=== PATIENT | male | born 1990 | race Asian ===

== ENCOUNTER 2016-12-04 15:05 | Emergency (ER) | payer MEDICAID ==
[2016-12-04 15:12] VITALS: O2SAT 98
--- NOTE | 2016-12-04 15:14 | EDPHY ---
H & P Stated Complaint: 1 week RLQ/ RFlank pain Time Seen by Provider: 12/04/16 15:14 - Personal History Current Tetanus/Diphtheria Vaccine: Yes - Medical/Surgical History Hx Asthma: No Hx Chronic Respiratory Disease: No Hx Diabetes: No Hx Cardiac Disease: No Hx Renal Disease: No Hx Cirrhosis: No Hx Alcoholism: No Hx HIV/AIDS: No Hx Splenectomy or Spleen Trauma: No Other PMH: denies - Social History Smoking Status: Current every day smoker Constitutional: Initial Vital Signs Temperature (C) 37 C 12/04/16 15:09 Heart Rate 86 12/04/16 15:09 Respiratory Rate 20 12/04/16 15:09 Blood Pressure 120/78 12/04/16 15:09 O2 Sat (%) 98 12/04/16 15:09 O2 Delivery Mode Room Air Allergies/Adverse Reactions: No Known Allergies Allergy (Unverified 12/04/16 15:08) Home Medications: Medication Instructions Recorded Cephalexin [Keflex (RX)] 500 mg PO TID #30 cap 12/04/16 Hydrocodone/APAP 5/325 [[place] 1 - 2 each PO Q4-6PRN PRN #20 tab 12/04/16 5/325] Medical Decision Making - Diagnostics Imaging Results: Imaging Impressions Abdomen/Pelvis CT 12/04/16 15:51 Impression: 3 mm calculus in the distal right ureter with no significant hydronephrosis. Results called and discussed with Sergio Norwood M.D. on December 04, 2016 at 1648 hours. Attention: This CT examination is specifically designed to evaluate patients who are clinically suspected of having acute obstructive uropathy. This examination does not use radiographic contrast, and as such, provides only a limited evaluation of the abdomen, pelvis and retroperitoneum. If there is further clinical suspicion for pathological conditions other than obstructive uropathy, a complete CT evaluation of the abdomen and pelvis utilizing intravenous, oral, and rectal contrast should be considered. Imaging: Discussed imaging studies w/ call center analyst Radiologist ED Course/Re-evaluation: CHIEF COMPLAINT: RLQ Pain HISTORY OF PRESENT ILLNESS: This patient is a 26 year old male complaining of intermittent right-sided abdominal pain onset one week ago. He describes the pain as dull and localized to his right lower quadrant, and states that the discomfort has begun radiating to his back and towards his groin. He denies nausea, vomiting, or testicular pain. He denies recent trauma or history of hernia or other abdominal surgeries. REVIEW OF SYSTEMS: A 10 point review of systems was performed and is negative with the exception of the elements mentioned in the history of present illness. PHYSICAL EXAM: HR, BP, O2 Sat, RR. Temp noted General Appearance: Alert, well hydrated, appropriate, and non-toxic appearing. Head: Atraumatic without scalp tenderness or obvious injury Eyes: Pupils equal, round, reactive to light and accommodation, EOMI, no trauma , no injection. Throat: There is no erythema or exudates, no lesions, normal tonsils, mucus membranes moist. Neck: Supple, nontender, no lymphadenopathy. Respiratory: No retractions, no distress, no wheezes, and no accessory muscle use. Lungs are clear to auscultation bilaterally. Cardiovascular: Regular rate and rhythm, no murmurs, rubs, or gallops. Good capillary refill all extremities. Gastrointestinal: Abdomen is soft, nontender, non-distended, no masses, no rebound, no guarding, no peritoneal signs. Musculoskeletal: Normal active ROM of all extremities, atraumatic. Neurological: Alert, appropriate, and interactive. Nonfocal neuro exam. Skin: No rashes, good turgor, no nodules on palpation. Past medical history: Denies Past surgical history: Denies Family history: Noncontributory Social history: Significant other at bedside. DIFFERENTIAL DIAGNOSIS: The differential diagnosis for the patient's abdominal pain included but was not limited to appendicitis, cholecystitis, kidney stone, hernias, testicular torsion, gastritis, and urinary tract infection. MEDICAL DECISION MAKING: This patient is a 26 year old male presenting with 1 week history of right- sided lower abdominal pain. On exam, his pain is non-reproducible, abdomen and flank are not tender on palpation. Plan for labs including I-stat and UA. IV established. Plan to administer 1L IV NS. WBC elevated, UA reveals presence of blood. Plan for CT abdomen to further evaluate. Plan to administer 500mg PO Keflex. 16:[address] Simons, radiologist. CT abdomen reveals 3mm distal kidney stone. 16:53 Reassessed patient. Plan to discharge home in good condition with referral to urology, Vicodin for pain control, Keflex to address elevated white blood cell count. The patient is comfortable with this plan. - Data Points Laboratory Results: 12/04/16 12/04/16 15:23 15:20 POC Hgb 18.0 gm/dL H gm/dL (13.7-17.5) POC Hct 53 % H % (40-51) POC Sodium 143 mEq/L mEq/L (134-144) POC Potassium 3.7 mEq/L mEq/L (3.3-5.0) POC Chloride 100 mEq/L mEq/L (97-110) POC BUN 10 mg/dL mg/dL (7-23) POC Creatinine 1.2 mg/dL mg/dL (0.7-1.3) POC Glucose 95 mg/dL mg/dL (70-100) Urine Color YELLOW Urine Appearance HAZY Urine pH 5.0 (5.0-7.5) Ur Specific [place] 1.024 (1.002-1.030) Urine Protein 1+ H (NEGATIVE) Urine Ketones NEGATIVE (NEGATIVE) Urine Blood NEGATIVE (NEGATIVE) Urine Nitrate NEGATIVE (NEGATIVE) Urine Bilirubin NEGATIVE (NEGATIVE) Urine Urobilinogen NEGATIVE EU EU (0.2-1.0) Ur Leukocyte Esterase NEGATIVE (NEGATIVE) Urine RBC 25-50 /hpf H /hpf (0-3) Urine WBC 5-10 /hpf H /hpf (0-3) Ur Epithelial Cells TRACE /lpf /lpf (NONE-1+) Urine Mucus 2+ /lpf H /lpf (NONE-1+) Urine Glucose NEGATIVE (NEGATIVE) Medications Given: Discontinued Medications Sodium Chloride (Ns) 1,000 mls @ 0 mls/hr IV ONCE ONE; Wide Open PRN Reason: Protocol Stop: 12/04/16 15:21 Last Admin: 12/04/16 15:20 Dose: 1,000 mls Point of Care Test Results: 12/04/16 15:23 POC Sodium 143 POC Potassium 3.7 POC Chloride 100 POC BUN 10 POC Creatinine 1.2 POC Glucose 95 Departure - Departure Disposition: Home, Routine, Self-Care Clinical Impression: Kidney stone on right side Condition: Good Instructions: Kidney Stones (ED) Additional Instructions: 1. Take your Keflex as prescribed. It is important to finish your entire course of antibiotics. 2. Take Vicodin as prescribed as needed for pain. You may also take ibuprofen as directed on the packaging. 3. Follow up with urology on Tuesday for continued management of your kidney stone. We have referred you to our urologist education and training coordinator. 4. Return to the Emergency Department for worsening or uncontrollable pain, fever, chills, nausea, vomiting, blood in your urine, or other worsening of condition. Referrals: NONE *PRIMARY CARE P,. [Primary Care Provider] - As per Instructions Leonardo Garcia MD [Medical Doctor] - As per Instructions Prescriptions: Cephalexin [Keflex (RX)] 500 mg PO TID #30 cap Hydrocodone/APAP 5/325 [[place] 5/325] 1 - 2 each PO Q4-6PRN PRN #20 tab PRN Reason: Pain, Moderate Report Scribed for: Sergio Norwood Report Scribed by: Clarissa Hernandez Date of Report: 12/04/16 Time of Report: 16:55
[2016-12-04] MEDS ORDERED: NS 1,000 ML IV ONE (15:20)
[2016-12-04 15:35] LABS: COLOR YELLOW; LEUKOCYTE ESTERASE,URINE NEGATIVE (NEGATIVE); NITRITE,URINE NEGATIVE (NEGATIVE)
[2016-12-04 15:41] LABS: MUCUS 2+ /lpf (NONE-1+); RBC,URINE 25-50 /hpf (0-3)
[2016-12-04] MEDS ORDERED: CEPHALEXIN 500 MG CAP PO ONE (16:47)
[2016-12-04 17:11] VITALS: BP 113/76; PULSE 80; RESP 16; TEMP 98.4
== END 2016-12-04 17:17 | disposition home or self-care (01) ==
DX: N20.0 Calculus of kidney (principal); F17.200 Nicotine dependence, unspecified, uncomplicated; E86.9 Volume depletion, unspecified
CPT/HCPCS: 82947-QW

== ENCOUNTER 2017-01-15 17:33 | Emergency (ER) | payer MEDICAID ==
[2017-01-15 17:44] VITALS: RESP 16
[2017-01-15] MEDS ORDERED: KETOROLAC 15 MG/1 ML SDV IVP ONE (18:47)
[2017-01-15] MEDS ORDERED: DEXAMETHASONE 4 MG/ML VIAL IVP ONE (18:47)
--- NOTE | 2017-01-15 19:02 | EDPHY ---
H & P Smoking Status: Current every day smoker Time Seen by Provider: 01/15/17 18:56 HPI/ROS: HPI: Mr. Ashby is a 26 yrs, male who presents with Chief Complaint: Sore throat Location: Throat Quality: Pain Duration: 1 day Signs and Symptoms: Positive low-grade fever, no chills, positive fatigue, positive swollen glands, positive pain with swallowing, no rash, no neck stiffness Timing: Sudden and constant Severity: Moderate Context: Patient today presents with sudden onset of sore throat accompanied with swollen glands on both sides and fatigue. Modifying Factors: Has tried no eett-vuy-cwwrene medications Comment: ROS: Eyes: No blurred vision Respiratory: No shortness of breath, no cough Cardiovascular: No chest pain Gastrointestinal: No nausea, no vomiting no diarrhea Genitourinary: No dysuria Extremities: No myalgias Neurologic: No weakness, no numbness Skin: No rashes Hematologic: No bruising, no bleeding MEDICAL/SURGICAL HISTORY: Kidney stone. Denies any surgeries. (Mandy Dang) Social History: Student. Has a girlfriend. (Mandy Dang) Physical Exam: CONSTITUTIONAL: Young adult male, no difficulty with talking, awake and alert, no obvious distress HEENT: Atraumatic and normocephalic, PERRL, EOMI. Tympanic membranes clear. Oropharynx clear, tonsils 1+ bright red, no exudate, uvula midline and moist pink mucosa. Airway patent. Mild anterior cervical spotting lymphadenopathy. No meningismus. Cardiovascular: Normal S1/S2, tachycardia, regular rhythm, without murmur rub or gallop. PULMONARY/CHEST: Symmetrical and nontender. Clear to auscultation bilaterally Good air movement. No accessory muscle usage. ABDOMEN: Soft, nondistended, nontender, no rebound, no guarding, no peritoneal signs, no masses or organomegaly. No CVAT. EXTREMITIES: 2/2 pulses, no deformities, no clubbing, no cyanosis or edema. NEUROLOGICAL: no focal neuro deficits. GCS 15. Speech clear SKIN: Warm and dry, no erythema. no rash. Good capillary refill. (Mandy Dang) Constitutional: Initial Vital Signs Temperature (C) 37.2 C 01/15/17 17:41 Heart Rate 99 01/15/17 17:41 Respiratory Rate 16 01/15/17 17:41 O2 Sat (%) 97 08/19/17 17:41 O2 Delivery Mode Room Air Allergies/Adverse Reactions: No Known Allergies Allergy (Unverified 12/04/16 15:08) Home Medications: Medication Instructions Recorded Cephalexin [Keflex (RX)] 500 mg PO TID #30 cap 12/04/16 Hydrocodone/APAP 5/325 [[place] 1 - 2 each PO Q4-6PRN PRN #20 tab 12/04/16 5/325] Medical Decision Making ED Course/Re-evaluation: strep, mono, medications No signs of sepsis, tonsillar abscess, airway compromise, dehydration Strep positive, mono negative Patient adamantly declined taking 10 days of antibiotics requested "the shot" IM Bicillin given (Mandy Dang) I did not see this patient while he was in the emergency department. However his care was discussed with the PA while the patient was in the department. I agree with treatment plan and management (Humberto Chapman) Differential Diagnosis: Differential diagnosis includes but is not limited to viral syndrome, viral pharyngitis, strep pharyngitis, mono, retropharyngeal abscess, tonsillar abscess. (Mandy Dang) - Data Points Medications Given: Discontinued Medications Dexamethasone (Decadron Injection) 8 mg IVP EDNOW ONE Stop: 01/15/17 18:48 Last Admin: 01/15/17 19:14 Dose: 8 mg Sodium Chloride (Ns) 1,000 mls @ 0 mls/hr IV ONCE ONE; Wide Open PRN Reason: Protocol Stop: 01/15/17 19:15 Last Admin: 01/15/17 19:17 Dose: 1,000 mls Ketorolac Tromethamine (Toradol) 15 mg IVP EDNOW ONE Stop: 01/15/17 18:48 Last Admin: 01/15/17 19:14 Dose: 15 mg Penicillin G Procaine/Benzathine (Bicillin C-R 1.2mm Units Syr) 1,200,000 unit IM ONCE ONE PRN Reason: Protocol Stop: 01/15/17 19:31 Last Admin: 01/15/17 20:09 Dose: 1,200,000 unit Departure - Departure Disposition: Home, Routine, Self-Care Clinical Impression: Streptococcal pharyngitis Condition: Good Instructions: Strep Throat (ED) Additional Instructions: Take ibuprofen 600-800 mg every 6-8 hours with food for pain or fever. Referrals: [facility],. [Clinic] - 3-4 days, if not improved
[2017-01-15] MEDS ORDERED: NS 1,000 ML IV ONE (19:14)
[2017-01-15] MEDS ORDERED: BICILLIN C-R 1200000 UNIT/2 ML SYRINGE IM ONE (19:30)
[2017-01-15 20:22] VITALS: BP 137/87; PULSE 96; TEMP 98.6; O2SAT 96
== END 2017-01-15 20:22 | disposition home or self-care (01) ==
DX: J02.0 Streptococcal pharyngitis (principal); F17.200 Nicotine dependence, unspecified, uncomplicated; E86.9 Volume depletion, unspecified
CPT/HCPCS: 96374; J1100; J1885

== ENCOUNTER 2017-07-04 15:25 | Emergency (ER) | payer MEDICAID ==
[2017-07-04 15:33] VITALS: TEMP 98.1
--- NOTE | 2017-07-04 16:18 | CPEKG ---
Heart Rate: 95 RR Interval: 632 P-R Interval: 160 QRSD Interval: 102 QT Interval: 364 QTC Interval: 458 P [place]: 81 QRS [place]: 92 T Wave [place]: 49 EKG Severity - BORDERLINE ECG - EKG Impression: SINUS RHYTHM EKG Impression: CONSIDER RIGHT VENTRICULAR HYPERTROPHY EKG Impression: INFERIOR Q WAVES, PROBABLY NORMAL VARIATION Electronically Signed By: Bryant Augustine 04-Jul-2017 23:30:07
[2017-07-04 16:30] LABS: PLATELET COUNT 298 10^3/uL (150-400)
[2017-07-04] MEDS ORDERED: LORazepam 2 MG/ML INJ IVP ONE (16:32)
--- NOTE | 2017-07-04 17:20 | EDPHY ---
H & P Stated Complaint: N/V/D; feels like heart is pounding; anxious HPI/ROS: Chief complaint: Anxiety History of present illness: This is a 27-year-old male who presents to the emergency department reporting anxiety. He has a long history of anxiety. Today he woke up from sleep feeling anxious. He started to feel his heart pounding. He became nauseated and had some vomiting. He did have an episode of diarrhea. He denies potential precipitating factors. He denies alleviating factors. Again he states he has long history of anxiety and this feels similar although more intense. He denies other associated signs or symptoms including no fevers, no trouble breathing, no abdominal pain, no pain or swelling in the legs. Review of systems: A 10 point review of systems was obtained and other than described above was negative - Personal History Current Tetanus Diphtheria and Acellular Pertussis (TDAP): Yes - Medical/Surgical History Hx Asthma: No Hx Chronic Respiratory Disease: No Hx Diabetes: No Hx Cardiac Disease: No Hx Renal Disease: No Hx Cirrhosis: No Hx Alcoholism: No Hx HIV/AIDS: No Hx Splenectomy or Spleen Trauma: No Other PMH: denies - Social History Smoking Status: Current every day smoker - Physical Exam Exam: General Appearance: Alert, nontoxic. Eyes: Pupils equal and round no pallor or injection. ENT, Mouth: Mucous membranes moist. Respiratory: There are no retractions, lungs are clear to auscultation. Cardiovascular: Tachycardic with regular rhythm Gastrointestinal: Abdomen is soft and non tender, no masses, bowel sounds normal. Neurological: Alert and oriented x4. Strength and sensation intact and symmetrical. Skin: Warm and dry, no rashes. Musculoskeletal: Neck is supple non tender. Extremities are symmetrical, full range of motion. Psychiatric: Patient is somewhat anxious. Constitutional: Initial Vital Signs Temperature (C) 36.7 C 07/04/17 15:30 Heart Rate 112 H 07/04/17 15:30 Respiratory Rate 24 H 07/04/17 15:30 Blood Pressure 123/87 H 07/04/17 15:30 O2 Sat (%) 100 07/04/17 15:30 O2 Delivery Mode Room Air Allergies/Adverse Reactions: No Known Allergies Allergy (Verified 07/04/17 15:30) Home Medications: Medication Instructions Recorded NK [No Known Home Meds] 07/04/17 Medical Decision Making - Diagnostics Imaging Results: Imaging Impressions Chest X-Ray 07/04/17 16:32 Impression: No acute abnormality. Imaging: I viewed and interpreted images myself ED Course/Re-evaluation: Patient is discussed with my secondary supervising physician Dr. Bryant Augustine. Patient presents to the emergency depart with anxiety, chest pain , nausea, vomiting and diarrhea. He is nontoxic. Does appear anxious. Evaluation is largely unremarkable. Some potential for LVH on EKG, do not believe this is contributing to current symptoms. He is symptomatically treated with resolution of symptoms. He is discharged home. Asked to follow up with a primary care doctor and Cardiology for recheck. Return precautions are given. Differential Diagnosis: Included but not limited to anxiety, cardiac dysrhythmia, pulmonary embolism, electrolyte disturbances, unlikely ACS - Data Points Laboratory Results: Laboratory Results 07/04/17 16:02 07/04/17 16:02 07/04/17 07/04/17 07/04/17 16:02 16:02 16:02 WBC RBC Hgb Hct MCV MCH MCHC RDW Plt Count MPV Neut % (Auto) Lymph % (Auto) [place] % (Auto) Eos % (Auto) Baso % (Auto) Nucleat RBC Rel Count Absolute Neuts (auto) Absolute Lymphs (auto) Absolute Monos (auto) Absolute Eos (auto) Absolute Basos (auto) Absolute Nucleated RBC Immature Gran % Immature Gran # D-Dimer < 0.27 ug/mLFEU ug/mLFEU (0.00-0.50) Sodium 141 mEq/L mEq/L (135-145) Potassium 4.3 mEq/L mEq/L (3.5-5.2) Chloride 102 mEq/L mEq/L (97-110) Carbon Dioxide 16 mEq/l L mEq/l (22-31) Anion Gap 23 mEq/L H mEq/L (8-16) BUN 14 mg/dL mg/dL (7-23) Creatinine 1.0 mg/dL mg/dL (0.7-1.3) Estimated GFR > 60 Glucose 139 mg/dL H mg/dL (70-100) Calcium 10.3 mg/dL mg/dL (8.5-10.4) Troponin I < 0.012 ng/mL ng/mL (0.000-0.034) 07/04/17 16:02 WBC 11.34 10^3/uL H 10^3/uL (3.80-9.50) RBC 5.05 10^6/uL 10^6/uL (4.40-6.38) Hgb 17.2 g/dL g/dL (13.7-17.5) Hct 47.6 % % (40.0-51.0) MCV 94.3 fL fL (81.5-99.8) MCH 34.1 pg pg (27.9-34.1) MCHC 36.1 g/dL g/dL (32.4-36.7) RDW 11.1 % L % (11.5-15.2) Plt Count 298 10^3/uL 10^3/uL (150-400) MPV 9.2 fL fL (8.7-11.7) Neut % (Auto) 90.6 % H % (39.3-74.2) Lymph % (Auto) 6.2 % L % (15.0-45.0) [place] % (Auto) 2.5 % L % (4.5-13.0) Eos % (Auto) 0.0 % L % (0.6-7.6) Baso % (Auto) 0.4 % % (0.3-1.7) Nucleat RBC Rel Count 0.0 % % (0.0-0.2) Absolute Neuts (auto) 10.29 10^3/uL H 10^3/uL (1.70-6.50) Absolute Lymphs (auto) 0.70 10^3/uL L 10^3/uL (1.00-3.00) Absolute Monos (auto) 0.28 10^3/uL L 10^3/uL (0.30-0.80) Absolute Eos (auto) 0.00 10^3/uL L 10^3/uL (0.03-0.40) Absolute Basos (auto) 0.04 10^3/uL 10^3/uL (0.02-0.10) Absolute Nucleated RBC 0.00 10^3/uL 10^3/uL (0-0.01) Immature Gran % 0.3 % % (0.0-1.1) Immature Gran # 0.03 10^3/uL 10^3/uL (0.00-0.10) D-Dimer Sodium Potassium Chloride Carbon Dioxide Anion Gap BUN Creatinine Estimated GFR Glucose Calcium Troponin I Medications Given: Discontinued Medications Lorazepam (Ativan Injection) 1 mg IVP EDNOW ONE Stop: 07/04/17 16:33 Last Admin: 07/04/17 16:43 Dose: 1 mg Departure - Departure Disposition: Home, Routine, Self-Care Clinical Impression: Anxiety Chest pain Qualifiers: Chest pain type: unspecified Qualified Code(s): R07.9 - Chest pain, unspecified Condition: Good Instructions: Chest Pain (ED), Anxiety (ED) Additional Instructions: Follow-up with a primary care doctor and a software engineer web services for continued evaluation and care Please have the software engineer web services review your EKG, we recommend you get an echocardiogram If symptoms worsen or new symptoms develop return to the emergency room for recheck Referrals: NONE *PRIMARY CARE P,. [Primary Care Provider] - As per Instructions Jory Hall DO [Doctor of Osteopathy] - As per Instructions Ravi Cao MD [Medical Doctor] - As per Instructions
[2017-07-04 17:46] VITALS: BP 134/78; PULSE 97; RESP 16; O2SAT 97
== END 2017-07-04 17:45 | disposition home or self-care (01) ==
DX: F41.9 Anxiety disorder, unspecified (principal); R07.9 Chest pain, unspecified; F17.200 Nicotine dependence, unspecified, uncomplicated
CPT/HCPCS: 96374; J2060